=== PATIENT | female | born 1990 | race Caucasian/White ===

== ENCOUNTER 2018-09-23 05:02 | Inpatient (IN) | payer BC ==
[2018-09-23] VITALS (12 sets, daily range): BP systolic 103–118; BP diastolic 53–80; Ht 160 cm; Wt 67.1 kg
[~2018-09-23] VITALS: Ht 160 cm; Wt 67.1 kg
[~2018-09-23 05:02] MED LIST: ACET-1966 PO; ALBU8.5H IH; Benzocaine 60 ML TP; CALC-18 PO; CETI10CA8 PO; DOCU240C67 PO; IBUP800T37 PO; Lanolin TP; ONDA4TAB9 PO; PREN-127 PO; TUCKS TOP
[2018-09-23] MEDS ORDERED: OXYTOCIN 30 UNIT/D5LR 500 ML 500 ML IV PRN ×2 (05:04→07:01)
[2018-09-23] MEDS ORDERED: DLR(*) 1000 ML BAG 1,000 ML IV PRN ×2 (05:04→07:01)
[2018-09-23] MEDS ORDERED: cefOXitin/DEX(*) 2GM/50ML PREM 50 ML IVPB PRN (05:05)
[2018-09-23] MEDS ORDERED: FLUSH 10 ML SYR IVP PRN (05:05)
[2018-09-23] MEDS ORDERED: LIDOCAINE/SOD BICARB 8.4% SYR ID ONE (05:20)
[2018-09-23 05:51] LABS: PLATELET COUNT, AUTOMATED 212 K/uL (150-450)
[2018-09-23] MEDS: LR(*) 1000 ML BAG 1,000 ML IV PRN ×2 (05:57→06:08)
[2018-09-23] MEDS ORDERED: METOCLOPRAMIDE 10 MG/2 ML SDV IVP ONE (06:10)
[2018-09-23] MEDS ORDERED: FAMOTIDINE(*) 20MG/50ML PREMIX 50 ML IVPB ONE (06:10)
[2018-09-23] MEDS ORDERED: MORPHINE PF 5 MG/10 ML AMP ONE (06:30)
[2018-09-23] MEDS ORDERED: OXYTOCIN 10 UNIT/ML SDV ONE (06:30)
[2018-09-23] MEDS ORDERED: DEXAMETHASONE SOD 4 MG/ML VIAL ONE (06:31)
[2018-09-23] MEDS ORDERED: KETOROLAC 30 MG/ML VIAL ONE (06:31)
[2018-09-23] MEDS ORDERED: ONDANSETRON 4 MG/2 ML VIAL ONE (06:31)
--- NOTE | 2018-09-23 07:01 | History & Physical ---
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 She has seen an opthamalologist and his recommendation was to avoid pushing in labor for this and to have a . This was di scussed with Екатерина including pros/cons of as delivery method. She desires a . has been relatively uncomplicated otherwise. She was followed by u/s for growth at 30 weeks and was normal. She is GBS positive. Past Medical, Surgical, Family and Obstetric Histories reviewed. Please see ACOG chart. History Patient's Blood Type: O Positive Rubella Status: Immune Group B Strep Screen: Positive Obstetrical History: x 1 Allergies: Coded Allergies: Sulfa (Sulfonamide Antibiotics) (Verified Allergy, Unknown, 10/22/16) Med Rec Home Meds Reported Medications Acetaminophen (TYLENOL) 325 Mg Tablet, 325 MG PO PRN, TAB 08/28/18 Ondansetron 4 Mg Odt (ONDANSETRON 4 MG ODT) 4 Mg Tab.rapdis, 4 MG PO ONCE PRN for NAUSEA, TAB 08/28/18 Vits W-Ca,Fe,Fa(<1MG) ( VITAMINS) 1 Each Tablet, 1 EACH PO DAILY, TAB 10/28/16 Albuterol Sulfate 90 Mcg/Act (PROAIR HFA 90 MCG/ACT) 8.5 Gm Hfa.aer.ad, 2 PUFF IH Q4-6H, INHALER 10/28/16 Review of Systems All Systems Reviewed/Normal: Yes, Except as Noted Exam General Exam General Apperance: Alert/Awake/No Acute Distress Neuro: No Gross deficits Eyes: Normal Extraocular Movement & Vison Cardiovascular: Regular Rate and Rhythm Respiratory: No Respiratory Distress, Clear to Auscultation Abdomen: Soft, Non-Tender, Non-Distended, Gravid - Non-Tender Integumentary: Skin Intact without Lesions or Rash Psychological: Alert & Oriented X3, Appropriate Mood & Affect Fetus Heart Tone Variabilty: Moderate FHT Accelerations: 15X15 FHT Category: I Medical Decision Making Data Points Result Diagram: 09/23/18 0535 VTE Prophylasis: Adult Deep Vein Thrombosis/Pulmonary: No Pharmacological Contraindicati: Pt at Low Risk for VTE Mechanical Contraindications: Pt at Low Risk for VTE Assessment and Plan Problems: (1) Valsalva retinopathy (2) 39 weeks gestation of Assessment & Plan: repeat as planned. Reviewed risks and benefits of vs vaginal delivery. 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
[2018-09-23] MEDS ORDERED: ZOLPIDEM TARTRATE 5 MG TAB PO PRN (07:05)
[2018-09-23] MEDS ORDERED: LANOLIN OINT 7 GM TUBE TP PRN (07:05)
[2018-09-23] MEDS ORDERED: ONDANSETRON 4 MG/2 ML VIAL IV PRN (07:05)
[2018-09-23] MEDS ORDERED: ACETAMINOPHEN 325 MG TAB PO PRN (07:05)
[2018-09-23] MEDS ORDERED: PROMETHAZINE 25 MG/ML 1 ML AMP IVP PRN (07:05)
--- NOTE | 2018-09-23 08:37 | Post Operative Note ---
Operative Note - MANAGER FORMS Operative Day Date: Sep 23, 2018 Time: 08:28 Physicians Surgeon: Leodan Anesthesia: Spinal Diagnosis Pre-Op Diagnosis: 39 weeks Valsalva retinopathy Post-Op Diagnosis: same Procedure Findings: female, vtx, APGARS 7, 8 weight 2980 gms Delivery time 0734 Procedure(s): Primary LTCS Specimen Removed:(Maybe N/A): placenta Complications: none [id number] Fluids Fluids: 2000 ml Estimated Blood Loss: 500 ml Dictated Date OP Note Dictated: Sep 23, 2018 Time OP Note Dictated: 08:32 Copies to: ADILSON MONTELONGO MD ; ADILSON MONTELONGO MD Sep 23, 2018 08:37
[2018-09-23] MEDS: DOCUSATE CALCIUM 240 MG CAP PO SCH ×2 (09:00→20:37)
[2018-09-23] MEDS: FAMOTIDINE 20 MG TAB PO SCH ×2 (09:00→20:37)
--- NOTE | 2018-09-23 09:17 | OPERATIVE REPORT 1 ---
EVENT DATE: September 23, 2018 SURGEON: Doe Alcocer MD ANESTHESIOLOGIST: Jaylen Horton MD ANESTHESIA: Spinal PREOPERATIVE DIAGNOSES 1. 39-weeks intrauterine . 2. Valsalva retinopathy. POSTOPERATIVE DIAGNOSES 1. 39-weeks intrauterine . 2. Valsalva retinopathy. PROCEDURE PERFORMED Primary low transverse caesarean section via Pfannenstiel skin incision. ESTIMATED BLOOD LOSS 500 cc. FLUIDS 2000 cc IV crystalloids. URINE OUTPUT Not measured. FINDINGS Female infant, cephalic presentation, Apgars 7 and 8. Placenta manually removed intact. Delivery weight 2980 grams. Delivery time 0734. DESCRIPTION OF PROCEDURE The patient was brought to the operating room with working IV and spinal anesthetic was placed by Dr. Horton. She was then moved to the dorsal lithotomy position with a leftward tilt and prepped and draped in the usual sterile fashion. Using a knife, a Pfannenstiel skin incision was made and carried through to the underlying rectus fascia. This was niched in the midline and extended laterally using the Daniels scissors. The rectus fascia was dissected off underlying rectus muscles using sharp dissection. The rectus muscles were then in the midline. The peritoneum was entered sharpy. This was extended superiorly and inferiorly, taking care to avoid injury to the underlying bladder. The bladder blade was inserted and the vesicouterine peritoneum was tented and entered sharply with Metzenbaum scissors and extended laterally. A bladder flap was created digitally. This exposed the lower uterine segment of the uterus, which received a low transverse incision with a scalpel and carried through to the intraamniotic space. There was clear fluid upon amniotomy. This was extended laterally using blunt lateral traction. The hand was inserted. The infant's head was elevated to the incision and fundal pressure was applied. The infant's head delivered atraumatically. The mouth and nose were bulb suctioned. Further fundal pressure effected delivery of the anterior and posterior shoulder followed by the remainder of the without difficulty. The mouth and nose were again bulb suctioned. The was stimulated manually. Cord was clamped, cut and then passed to the resuscitation team. A cord sample was obtained. The placenta was delivered manually. The uterus was exteriorized and cleared of clots and debris. Tolbert clamps were placed for hemostasis while the uterine repair was performed with a #1 Monocryl in a running locking stitch. A second suture of the same type was used to imbricate the first layer, completing a two layer closure. This was hemostatic upon completion. Therefore, the pelvis was irrigated and swept clear of clots and debris. Uterus was returned to the abdomen and bilateral pelvic gutters were irrigated and swept clear of clots and debris. Parietal peritoneum was repaired using 3-0 Vicryl in a running nonlocking stitch. Rectus muscles were reapproximated in the midline of the same stitch. The rectus muscle bellies were irrigated and blotted dry. A light amount of cautery was applied for capillary hemostasis. The rectus fascia was repaired with an 0 Vicryl in a running nonlocking stitch. Subcuticular space was irrigated and swept clear of clots and debris. Cautery was used for capillary hemostasis while the subcuticular space was closed with 3-0 Vicryl in a running nonlocking stitch. The skin was repaired with a 4-0 Monocryl simple subdermal and covered with Dermabond skin adhesive. She tolerated the procedure very well. Sponge, lap, needle and instrument counts were all correct x3. She was taken to recovery in stable condition. SHEFALI
[2018-09-23] MEDS ORDERED: NALOXONE HCL 0.4 MG/ML VIAL IV PRN (09:55)
[2018-09-23] MEDS ORDERED: ONDANSETRON 4 MG/2 ML VIAL IVP PRN (09:55)
[2018-09-23] MEDS ORDERED: diphenhydrAMINE 25 MG CAP PO PRN (09:55)
[2018-09-23] MEDS: NALBUPHINE HCL 10 MG/ML AMP IVP PRN ×2 (10:23→15:09)
[2018-09-23] MEDS ORDERED: KETOROLAC 30 MG/ML VIAL IVP SCH (12:00)
[2018-09-23] MEDS: KETOROLAC 30 MG/ML VIAL IVP SCH ×2 (14:01→20:37)
[2018-09-24] MEDS: KETOROLAC 30 MG/ML VIAL IVP SCH (01:57)
[2018-09-24 04:17] VITALS: BP 116/81
[2018-09-24 06:41] LABS: PLATELET COUNT, AUTOMATED 185 K/uL (150-450)
[2018-09-24 07:20] VITALS: BP 109/76
[2018-09-24] MEDS: IBUPROFEN 800 MG TAB PO SCH ×3 (07:52→23:22)
[2018-09-24] MEDS: FAMOTIDINE 20 MG TAB PO SCH ×2 (08:40→20:59)
[2018-09-24] MEDS: DOCUSATE CALCIUM 240 MG CAP PO SCH ×2 (08:40→20:59)
[2018-09-24 11:30] VITALS: BP 111/66
[2018-09-24] MEDS: SIMETHICONE 80 MG CHEW CHEW PRN ×2 (14:24→20:59)
[2018-09-24 15:30] VITALS: BP 120/78
--- NOTE | 2018-09-24 15:36 | OB/GYN Progress Note ---
OB Subjective Progress Notes Subjective Doing well. Pain well controlled and only occasional nausea but not emesis. Ambulating now and voiding spontaneously. Wants to shower. GI: NEG Nausea : Voiding Well Pain: Mild OB Objective Physical Exam Vital Signs Date Time Temp Pulse Resp B/P (MAP) Pulse Ox O2 Delivery O2 Flow Rate FiO2 09/24/18 07:20 Room Air 09/24/18 07:20 98.4 65 16 109/76 (87) 94 Intake and Output 09/24/18 07:00 Intake Total 3000 ml Output Total 1250 ml Balance 1750 ml IV Total 3000 ml Output Urine Total 1250 ml General Appearance: Alert/Awake/No Acute Distress Neurological: No Gross deficits Eyes: Normal Extraocular Movement & Vison Cardiovascular: Normal Rhythm & Peripheral Pulses, Regular Rate and Rhythm Respiratory: No Respiratory Distress, Clear to Auscultation Abdomen: Soft, Non-Tender, Non-Distended, Fundus Firm, Non-Tender Incision: Clean, Dry, Intact, Dermabond Integumentary: Skin Intact without Lesions or Rash Psychological: Alert & Oriented X3, Appropriate Mood & Affect Result Diagram: 09/24/18 0622 Assessment and Plan P[employer] Plan: Routine Post-Op Care, Discharge Home Tomorrow Problems: (1) Valsalva retinopathy (2) 39 weeks gestation of (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 Continue pain medication as needed and monitor for nausea. Zofran for nausea if needed. ADILSON MONTELONGO MD Sep 24, 2018 15:36
[2018-09-24] MEDS ORDERED: PER PO (15:40)
[2018-09-24] MEDS ORDERED: IBUP800T37 PO (15:40)
[2018-09-24] MEDS ORDERED: ONDANSETRON 4 MG ODT TABDP SL PRN (15:55)
[2018-09-24 19:13] VITALS: BP 115/78
[2018-09-24 23:17] VITALS: BP 121/84
[2018-09-25 03:09] VITALS: BP 128/81
[2018-09-25] MEDS ORDERED: MAGNESIUM HYDROXIDE* 30ML UDCP PO PRN (03:15)
[2018-09-25] MEDS ORDERED: MEASLES,MUMP,RUBELLA VAC 0.5ML SUBQ ONE (07:05)
[2018-09-25] MEDS ORDERED: INFLUENZA VIRUS VAC 0.5ML SYR IM ONLY ONE (07:05)
[2018-09-25] MEDS ORDERED: DIPHTH/TETANUS/ACEL. PERTUSSIS IM ONLY ONE (07:05)
--- NOTE | 2018-09-25 07:35 | OB/GYN Progress Note ---
OB Subjective Progress Notes Subjective Doing well. Pain well controlled and ambulating. BM already and feels well. Voiding well. GI: NEG Nausea : Voiding Well Pain: Mild OB Objective Physical Exam Vital Signs Date Time Temp Pulse Resp B/P (MAP) Pulse Ox O2 Delivery O2 Flow Rate FiO2 09/25/18 03:09 98.1 67 16 128/81 (97) 96 Room Air Intake and Output 09/25/18 07:00 Intake Total 2080 ml Output Total 1100 ml Balance 980 ml Intake Oral 2080 ml Output Urine Total 1100 ml General Appearance: Alert/Awake/No Acute Distress Neurological: No Gross deficits Eyes: Normal Extraocular Movement & Vison Cardiovascular: Normal Rhythm & Peripheral Pulses, Regular Rate and Rhythm Respiratory: No Respiratory Distress, Clear to Auscultation Abdomen: Soft, Non-Tender, Non-Distended, Fundus Firm, Non-Tender Incision: Clean, Dry, Intact, Dermabond Integumentary: Skin Intact without Lesions or Rash Psychological: Alert & Oriented X3, Appropriate Mood & Affect Result Diagram: 09/24/18 0622 Assessment and Plan VP DATA Plan: Routine Post- Care, Routine Post-Op Care, Discharge Home Today Problems: (1) Valsalva retinopathy (2) 39 weeks gestation of (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 Return to office in 2 weeks for check. Call with concerns. Activity restrictions reviewed. ADILSON MONTELONGO MD Sep 25, 2018 07:35
--- NOTE | 2018-09-25 07:36 | OB/GYN Discharge Summary ---
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 (4) Other specified aftercare following surgery [place] Vital Signs Vital Signs Date Time Temp Pulse Resp B/P (MAP) Pulse Ox O2 Delivery O2 Flow Rate FiO2 09/24/18 07:20 Room Air 09/24/18 07:20 98.4 65 16 109/76 (87) 94 Weight (Pounds): 148 Result Diagram: 09/24/18 0622 Condition: Improved Discharge: Home, Self Senior Care Meds Active Scripts Oxycodone/Acetaminophen (OXYCODONE/ACETAMINOPHEN 5MG/325 MG) 5 Mg/325 Mg Tab, 1- 2 TAB PO Q4H PRN for PAIN, #20 TAB 0 Refills Prov:ADILSON ALCOCER MD 09/24/18 Reported Medications Acetaminophen (TYLENOL) 325 Mg Tablet, 325 MG PO PRN, TAB 08/28/18 Ondansetron 4 Mg Odt (ONDANSETRON 4 MG ODT) 4 Mg Tab.rapdis, 4 MG PO ONCE PRN for NAUSEA, TAB 08/28/18 Vits W-Ca,Fe,Fa(<1MG) ( VITAMINS) 1 Each Tablet, 1 EACH PO DAILY, TAB 10/28/16 Albuterol Sulfate 90 Mcg/Act (PROAIR HFA 90 MCG/ACT) 8.5 Gm Hfa.aer.ad, 2 PUFF IH Q4-6H, INHALER 10/28/16 Follow up Referrals: [place] [facility] - In Two Weeks @ [facility] with ADILSON ALCOCER MD Follow up with: Dr. Alcocer [phone] Follow up in: 6 wks PP or PO, 2 wks PO Discharge Diet: As Tolerates Discharge Activity: As Tolerates, No Heavy Lifting x 6 wks, No Heavy Lifting > 10lb, Pelvic Rest Copies to: ADILSON ALCOCER MD ; ADILSON ALCOCER MD Sep 24, 2018 15:41
[2018-09-25 07:40] VITALS: BP 123/89
[2018-09-25] MEDS: IBUPROFEN 800 MG TAB PO SCH (08:11)
[2018-09-25] MEDS: FAMOTIDINE 20 MG TAB PO SCH (08:11)
[2018-09-25] MEDS: DOCUSATE CALCIUM 240 MG CAP PO SCH (08:12)
== END 2018-09-25 11:55 | disposition home or self-care (01) | DRG 788 ==
LOC: OB 05:02
PROVIDERS: ADMIT Obstetrics & Gynecology; ATTEND Obstetrics & Gynecology
PROC: 10D00Z1 Extraction of Products of Conception, Low, Open Approach (ICD-10-PCS; principal; 2018-09-23 07:00)
DX: O99.824 Streptococcus B carrier state complicating childbirth (principal); O99.89 Other specified diseases and conditions complicating pregnancy, childbirth and the puerperium; H35.103 Retinopathy of prematurity, unspecified, bilateral; Z88.2 Allergy status to sulfonamides; Z3A.39 39 weeks gestation of pregnancy; Z37.0 Single live birth
CPT/HCPCS: 36415; 85014; 85018; 85025; 86703; 86850; 86900; 86901; J0694; J1100; J1885; J2270; J2300; J2405; J2590; J2765; J7120

== ENCOUNTER 2018-09-28 22:13 | Inpatient (IN) | payer BC ==
[2018-09-23 05:30] VITALS: Wt 65.5 kg
[~2018-09-28 22:13] MED LIST changes: +PER PO
[2018-09-28 22:56] LABS: PLATELET COUNT, AUTOMATED 253 K/uL (150-450)
--- NOTE | 2018-09-28 23:36 | RADIOLOGY IMAGING REPORT ---
FACILITY: [facility] PATIENT NAME: Danay Mckeon : 1990 MR: [id number] V: [id number] EXAM DATE: ORDERING PHYSICIAN: NAN BARBOSA TECHNOLOGIST: Location: [facility] Patient: Danay Mckeon : 1990 Visit/Account:[id number] Date of Sevice: 09/28/2018 PORTABLE CHEST: Indication: Dyspnea. Technique: A single frontal film was obtained. Comparison: None available. Skeletal and soft tissue structures: Intact and unremarkable. Heart and mediastinum: Within normal limits. Lung randall: Well-expanded and clear. No focal or diffuse opacities. Pleural spaces: Unremarkable. Impression: No acute process. Report Dictated By: Julian Reardon MD at 09/28/2018 11:31 PM Report E-Signed By: Julian Reardon MD at 09/28/2018 11:32 PM WSN:[id number]
[2018-09-29] MEDS ORDERED: IOPAMIDOL 76% 100 ML INFUS BTL 100 ML ONE (00:12)
[2018-09-29] MEDS ORDERED: NS(*) 0.9% 50 ML BAG 50 ML ONE (00:13)
--- NOTE | 2018-09-29 01:06 | RADIOLOGY IMAGING REPORT ---
FACILITY: [facility] [place] PATIENT NAME: Danay Mckeon : 1990 MR: [id number] V: [id number] EXAM DATE: [id number] ORDERING PHYSICIAN: NAN BARBOSA TECHNOLOGIST: [place] [facility] [place] Danay Mckeon : 1990 Visit/Account:[id number] Date of Sevice: 09/28/2018 CT angiogram of the chest: Indication: Dyspnea and chest pain. The patient is recently . Technique: Helical CT was performed through the chest following IV contrast enhancement with 75 cc of Isovue 370. Multiplanar reconstructions and MIP images are reviewed. One of the following dose optimization techniques was utilized in the performance of this exam: Autom ated exposure control; adjustment of the mA and/or kV according to the patient's size; or use of an i terative reconstruction technique. Specific details can be referenced in the facility's radiology CT exam operational policy. Comparison: None available. Pulmonary arteries: There is a small filling defect in a subsegmental pulmonary artery branch in the right lower lobe, compatible with acute pulmonary embolus. No other emboli are clearly identified in the peripheral or central pulmonary artery branches. Aorta and great vessels: There is uniform contrast enhancement. There are no signs of dissection or a neurysm. Heart and pericardial soft tissues: Within normal limits. Mediastinal soft tissues: Unremarkable. Lung randall: There is minimal atelectasis at the bases. No focal parenchymal consolidation or volume loss is identified. Pleural spaces: No evidence of effusion, focal pleural thickening, or pneumothorax. Skeletal structures: Well mineralized and intact. Upper abdomen: Unremarkable. IMPRESSION: Acute right lower lobe pulmonary embolus. A preliminary [place] [facility] [place]. Report Dictated By: Julian Reardon MD at 09/29/2018 12:42 AM Report E-Signed By: Julian Reardon MD at 09/29/2018 1:02 AM WSN:[id number]
--- NOTE | 2018-09-29 01:31 | ER Report ---
History and Physical Time Seen By MD: 22:30 Hx. of Stated Complaint: patient 5days post-, patient started having shortness of breath this evening, patient states feels a lot of pressure in chest, called ob nutritional yeast supervisor, they recommended she come in and get checked to rule out a PE. patients blood pressure running eye and has a lot of swelling in legs. HPI/ROS CHIEF COMPLAINT: dyspnea HISTORY OF PRESENT ILLNESS: 28 f 5 d from c section developed sudden onset sob, chest pressure 2 hrs prior to arrival. She has never had similar symptoms. Symptoms are moderate and chest pressure is non radiating. Pt notes bilat le edema x 1 day. She has not had stevenson, fever, chills, n/v. no prior VTE, no fam hx vte. Unremarkable . REVIEW OF SYSTEMS: Constitutional: No fever, no chills. Eyes: No discharge. ENT: No sore throat. Cardiovascular: Above Respiratory: Above Gastrointestinal: No abdominal pain, no vomiting. Genitourinary: no dysuria Musculoskeletal: No back pain. Skin: No rashes. Neurological: No headache. Remainder of the 14 system rev: Yes Allergies: Coded Allergies: Sulfa (Sulfonamide Antibiotics) (Verified Allergy, Unknown, 10/22/16) Home Meds Active Scripts Ibuprofen (IBUPROFEN) 800 Mg Tablet, 800 MG PO Q8H PRN for PAIN, #30 TAB 0 Refills Prov:ADILSON MONTELONGO MD 09/24/18 Oxycodone/Acetaminophen (OXYCODONE/ACETAMINOPHEN 5MG/325 MG) 5 Mg/325 Mg Tab, 1- 2 TAB PO Q4H PRN for PAIN, #20 TAB 0 Refills Prov:ADILSON MONTELONGO MD 09/24/18 Reported Medications Acetaminophen (TYLENOL) 325 Mg Tablet, 325 MG PO PRN, TAB 08/28/18 Ondansetron 4 Mg Odt (ONDANSETRON 4 MG ODT) 4 Mg Tab.rapdis, 4 MG PO ONCE PRN for NAUSEA, TAB 08/28/18 Vits W-Ca,Fe,Fa(<1MG) ( VITAMINS) 1 Each Tablet, 1 EACH PO DAILY, TAB 10/28/16 Albuterol Sulfate 90 Mcg/Act (PROAIR HFA 90 MCG/ACT) 8.5 Gm Hfa.aer.ad, 2 PUFF I H Q4-6H, INHALER 10/28/16 Reviewed Nurses Notes: Yes Old Medical Records Reviewed: Yes Hx Smoking: No Smoking Status: Never Smoker Exposure to Second Hand Smoke?: No Constitutional Vital Sign - Last 24 Hours 09/28/18 09/28/18 09/28/18 09/28/18 22:24 22:28 22:30 22:43 Temp 98.3 Pulse 57 46 51 Resp 12 17 45 B/P (MAP) 154/100 157/97 (117) Pulse Ox 95 93 96 O2 Delivery Room Air 09/28/18 09/28/18 09/28/18 09/28/18 22:58 23:00 23:28 23:30 Pulse 49 48 Resp 32 9 B/P (MAP) 151/96 (114) 139/93 (108) Pulse Ox 94 95 09/28/18 09/28/18 09/29/18 09/29/18 23:43 23:48 00:00 00:03 Pulse 43 49 52 Resp 21 29 27 B/P (MAP) 158/97 (117) 159/96 (117) Pulse Ox 96 94 96 09/29/18 09/29/18 09/29/18 09/29/18 00:08 00:22 00:30 00:38 Pulse ??? 50 Resp 23 15 B/P (MAP) 150/92 (111) 145/88 (107) Pulse Ox 94 94 09/29/18 09/29/18 09/29/18 00:53 01:00 01:08 Pulse 54 48 Resp 11 25 B/P (MAP) 151/94 (113) Pulse Ox 92 95 Physical Exam General Appearance: The patient is alert, has no immediate need for airway protection and no signs of toxicity. Eyes: Pupils equal and round no pallor or injection. ENT, Mouth: Mucous membranes are moist. Respiratory: There are no retractions, lungs are clear to auscultation. Cardiovascular: Regular rate and rhythm. No m/r/g Gastrointestinal: Abdomen is soft and non tender, no masses, bowel sounds normal. Neurological: alert, oriented, moves all ext Skin: Warm and dry, no rashes. Musculoskeletal: Extremities are nontender, nonswollen and have full range of motion. No edema DIFFERENTIAL DIAGNOSIS: After history and physical exam differential diagnosis was considered for PE, ACS, pre-eclampsia, dilated cardiomyopathy, or other emergent etiology. Medical Decision Making Data Points Result Diagram: 09/28/18223309/28/182233 Laboratory Hematology Test 09/28/18 22:34 09/28/18 23:14 Red Blood Count 3.65 M/uL (4.17-5.56) Mean Corpuscular Volume 87.1 fL (80.0-96.0) Mean Corpuscular Hemoglobin 29.9 pg (26.0-33.0) Mean Corpuscular Hemoglobin Concent 34.3 g/dL (32.0-36.0) Red Cell Distribution Width 15.3 % (11.5-14.5) Mean Platelet Volume 8.1 fL (7.2-11.1) Neutrophils (%) (Auto) 55.6 % (39.4-72.5) Lymphocytes (%) (Auto) 31.4 % (17.6-49.6) Monocytes (%) (Auto) 9.5 % (4.1-12.4) Eosinophils (%) (Auto) 2.7 % (0.4-6.7) Basophils (%) (Auto) 0.8 % (0.3-1.4) Nucleated RBC Relative Count (auto) 0.0 /100WBC Neutrophils # (Auto) 3.5 K/uL (2.0-7.4) Lymphocytes # (Auto) 2.0 K/uL (1.3-3.6) Monocytes # (Auto) 0.6 K/uL (0.3-1.0) Eosinophils # (Auto) 0.2 K/uL (0.0-0.5) Basophils # (Auto) 0.0 K/uL (0.0-0.1) Nucleated RBC Absolute Count (auto) 0.00 K/uL Sodium Level 138 mmol/L (137-145) Potassium Level 3.9 mmol/L (3.5-5.0) Chloride Level 112 mmol/L (98-107) Carbon Dioxide Level 21 mmol/L (22-31) Blood Urea Nitrogen 16 mg/dl (7-18) Creatinine 0.70 mg/dl (0.52-1.04) Glomerular Filtration Rate Calc > 60.0 Random Glucose 94 mg/dl (75-110) Uric Acid 4.7 mg/dl (2.5-7.5) Calcium Level 8.7 mg/dl (8.4-10.2) Total Bilirubin < 0.1 mg/dl (0.2-1.3) Aspartate Amino Transf (AST/SGOT) 22 U/L (0-35) Alanine Aminotransferase (ALT/SGPT) 25 U/L (0-56) Alkaline Phosphatase 123 U/L (0-126) B-Type Natriuretic Peptide 283 pg/ml (0-100) Total Protein 6.2 g/dl (6.3-8.2) Albumin 3.5 g/dl (3.5-5.0) Urine Color Straw Urine Clarity Clear Urine pH 5.0 pH (4.8-9.5) Urine Specific [place] 1.006 Urine Protein Negative mg/dL (NEGATIVE) Urine Glucose (UA) Negative mg/dL (NEGATIVE) Urine Ketones Negative mg/dL (NEGATIVE) Urine Blood Small (NEGATIVE) Urine Nitrite Negative (NEGATIVE) Urine Bilirubin Negative (NEGATIVE) Urine Urobilinogen Negative mg/dL (0.2-1.9) Urine Leukocyte Esterase Negative (NEGATIVE) Urine RBC <1 /HPF (0-2/HPF) Urine WBC 1 /HPF (0-5/HPF) Urine Squamous Epithelial Cells Few /LPF (</=FEW) Urine Bacteria Negative /HPF (NONE-FEW) Urine Mucus None /HPF (NONE-FEW) Chemistry Test 09/28/18 22:34 09/28/18 23:14 White Blood Count 6.3 k/uL (4.5-11.0) Red Blood Count 3.65 M/uL (4.17-5.56) Hemoglobin 10.9 g/dL (12.0-16.0) Hematocrit 31.8 % (34.0-47.0) Mean Corpuscular Volume 87.1 fL (80.0-96.0) Mean Corpuscular Hemoglobin 29.9 pg (26.0-33.0) Mean Corpuscular Hemoglobin Concent 34.3 g/dL (32.0-36.0) Red Cell Distribution Width 15.3 % (11.5-14.5) Platelet Count 253 K/uL (150-450) Mean Platelet Volume 8.1 fL (7.2-11.1) Neutrophils (%) (Auto) 55.6 % (39.4-72.5) Lymphocytes (%) (Auto) 31.4 % (17.6-49.6) Monocytes (%) (Auto) 9.5 % (4.1-12.4) Eosinophils (%) (Auto) 2.7 % (0.4-6.7) Basophils (%) (Auto) 0.8 % (0.3-1.4) Nucleated RBC Relative Count (auto) 0.0 /100WBC Neutrophils # (Auto) 3.5 K/uL (2.0-7.4) Lymphocytes # (Auto) 2.0 K/uL (1.3-3.6) Monocytes # (Auto) 0.6 K/uL (0.3-1.0) Eosinophils # (Auto) 0.2 K/uL (0.0-0.5) Basophils # (Auto) 0.0 K/uL (0.0-0.1) Nucleated RBC Absolute Count (auto) 0.00 K/uL Glomerular Filtration Rate Calc > 60.0 Uric Acid 4.7 mg/dl (2.5-7.5) Calcium Level 8.7 mg/dl (8.4-10.2) Total Bilirubin < 0.1 mg/dl (0.2-1.3) Aspartate Amino Transf (AST/SGOT) 22 U/L (0-35) Alanine Aminotransferase (ALT/SGPT) 25 U/L (0-56) Alkaline Phosphatase 123 U/L (0-126) B-Type Natriuretic Peptide 283 pg/ml (0-100) Total Protein 6.2 g/dl (6.3-8.2) Albumin 3.5 g/dl (3.5-5.0) Urine Color Straw Urine Clarity Clear Urine pH 5.0 pH (4.8-9.5) Urine Specific [place] 1.006 Urine Protein Negative mg/dL (NEGATIVE) Urine Glucose (UA) Negative mg/dL (NEGATIVE) Urine Ketones Negative mg/dL (NEGATIVE) Urine Blood Small (NEGATIVE) Urine Nitrite Negative (NEGATIVE) Urine Bilirubin Negative (NEGATIVE) Urine Urobilinogen Negative mg/dL (0.2-1.9) Urine Leukocyte Esterase Negative (NEGATIVE) Urine RBC <1 /HPF (0-2/HPF) Urine WBC 1 /HPF (0-5/HPF) Urine Squamous Epithelial Cells Few /LPF (</=FEW) Urine Bacteria Negative /HPF (NONE-FEW) Urine Mucus None /HPF (NONE-FEW) Urinalysis Test 09/28/18 23:14 Urine Color Straw Urine Clarity Clear Urine pH 5.0 pH (4.8-9.5) Urine Specific [place] 1.006 Urine Protein Negative mg/dL (NEGATIVE) Urine Glucose (UA) Negative mg/dL (NEGATIVE) Urine Ketones Negative mg/dL (NEGATIVE) Urine Blood Small (NEGATIVE) Urine Nitrite Negative (NEGATIVE) Urine Bilirubin Negative (NEGATIVE) Urine Urobilinogen Negative mg/dL (0.2-1.9) Urine Leukocyte Esterase Negative (NEGATIVE) Urine RBC <1 /HPF (0-2/HPF) Urine WBC 1 /HPF (0-5/HPF) Urine Squamous Epithelial Cells Few /LPF (</=FEW) Urine Bacteria Negative /HPF (NONE-FEW) Urine Mucus None /HPF (NONE-FEW) EKG/Imaging EKG Interpretation 12 lead EKG: Rhythm: sinus bradycardia Ch[place]is: normal QRS: normal ST segments: normal sinus bradycardia, oth nl adjunct nursing faculty Interpretation: Sinus Bradycardia ED Course/Re-evaluation ED Course 28-year-old female presents with chest pain and dyspnea and is noted to have hypertension, all concerning for the potential of preeclampsia, dilated cardiomyopathy, PE or other emergent etiology. Ultimately, subsegmental PE noted and will admit patient on Lovenox to OB service with hospitalist consulting. I have discussed with OB attending, hospitalist, and patient and all are in agreement. Patient's blood pressure remains under 160/110 so we'll continue to monitor and withhold treatment at this time as per OB recommendations. Patient is hemodynamically stable in the emergency department. Procedure Results: Ultrasound of the echo was obtained. The results of the study are normal. The study was read by me. . Decision to Disposition Date: Sep 29, 2018 Decision to Disposition Time: 01:30 Critical Care Time I spent a total of 45 minutes of critical care time in obtaining history, performing a physical exam, bedside monitoring of interventions, collecting and interpreting tests and discussion with consultants but not including time spent performing procedures. Depart Departure Latest Vital Signs Vital Signs Date Time Temp Pulse Resp B/P (MAP) Pulse Ox O2 Delivery O2 Flow Rate FiO2 09/29/18 01:08 48 25 95 09/29/18 01:00 151/94 (113) 3/18/19 22:24 98.3 Room Air Impression: Primary Impression: Pulmonary embolism Condition: Improved Disposition: Admitted from ER (OB) Problem Qualifiers Primary Impression: Pulmonary embolism Pulmonary embolism type: other Chronicity: acute Acute cor pulmonale presence: without acute cor pulmonale Qualified Codes: I26.99 - Other pulm onary embolism without acute cor pulmonale NAN BARBOSA MD Sep 29, 2018 01:31
[2018-09-29] MEDS ORDERED: ENOXAPARIN 100 MG/ML SYR SC SCH ×3 (01:35→12:15)
[2018-09-29] MEDS ORDERED: PROMETHAZINE 25 MG/ML 1 ML AMP IVP PRN (01:50)
[2018-09-29] MEDS ORDERED: ONDANSETRON 4 MG/2 ML VIAL IV PRN (01:50)
[2018-09-29] MEDS ORDERED: METOCLOPRAMIDE 10 MG/2 ML SDV IV PRN (01:50)
[2018-09-29] MEDS ORDERED: ENOXAPARIN 100 MG/ML SYR SC ONE (01:55)
[2018-09-29 01:56] LABS: INR 0.94
--- NOTE | 2018-09-29 02:06 | EKG ---
FACILITY: [facility] PATIENT NAME: JENNIFER FOREMAN : [id number] MR: [id number] V: [id number] EXAM DATE: ORDERING PHYSICIAN: NAN BARBOSA TECHNOLOGIST: NATHALIA Mazariegos Reason : CP Blood Pressure : / mmHG Vent. Rate : 045 BPM Atrial Rate : 045 BPM P-R Int : 138 ms QRS Dur : 084 ms QT Int : 438 ms P-R-T Axes : 034 033 034 degrees QTc Int : 378 ms Sinus bradycardia No acute appearing findings No previous ECGs available Confirmed by EMILEE TERRELL ([id number]) on 09/29/2018 3:24:33 AM Referred By: Confirmed By:EMILEE ETRRELL
--- NOTE | 2018-09-29 02:28 | History & Physical ---
History of Present Illness Age of Patient: 28 : 2 Para or TPAL: 2 Chief Complaint Dyspnea and Shortness of Breath History of Present Illness 28 yo s/p section approximately 6 days ago. She reported sudden onset of chest pressure and shortness of breath which was not resolving. She called the chairperson anesthesiology phone and asked for advice. Given the patient's recent history of , , and current symptoms. I advised her to proceed to the emergency department for evaluation. Workup in the emergency department revealed a small filling defect in a subsegmental pulmonary artery branch in the right lower lobe, compatible with acute pulmonary embolus. History Obstetrical History: s/p on 09-23-18 Past Medical History: Unremarkable Allergies: Coded Allergies: Sulfa (Sulfonamide Antibiotics) (Verified Allergy, Unknown, 10/22/16) Med Rec Home Meds Active Scripts Ibuprofen (IBUPROFEN) 800 Mg Tablet, 800 MG PO Q8H PRN for PAIN, #30 TAB 0 Refills Prov:ADILSON MONTELONGO MD 09/24/18 Oxycodone/Acetaminophen (OXYCODONE/ACETAMINOPHEN 5MG/325 MG) 5 Mg/325 Mg Tab, 1- 2 TAB PO Q4H PRN for PAIN, #20 TAB 0 Refills Prov:ADILSON MONTELONGO MD 09/24/18 Reported Medications Acetaminophen (TYLENOL) 325 Mg Tablet, 325 MG PO PRN, TAB 08/28/18 Ondansetron 4 Mg Odt (ONDANSETRON 4 MG ODT) 4 Mg Tab.rapdis, 4 MG PO ONCE PRN for NAUSEA, TAB 08/28/18 Vits W-Ca,Fe,Fa(<1MG) ( VITAMINS) 1 Each Tablet, 1 EACH PO EV Y, TAB 10/28/16 Albuterol Sulfate 90 Mcg/Act (PROAIR HFA 90 MCG/ACT) 8.5 Gm Hfa.aer.ad, 2 PUFF IH Q4-6H, INHALER 10/28/16 Review of Systems Respiratory: Shortness of Breath, Cough, Wheezing, Other Exam General Exam Vital Signs Vital Signs Date Time Temp Pulse Resp B/P (MAP) Pulse Ox O2 Delivery O2 Flow Rate FiO2 09/29/18 07:15 52 14 96 Room Air 09/29/18 04:37 98.5 131/83 (99) General Apperance: Alert/Awake/No Acute Distress Neuro: No Gross deficits Cardiovascular: Other (Asymptomatic bradycardia) Musculoskeletal: No Weakness/Pain Extremities: No Cyanosis,Clubbing or Edema Psychological: Alert & Oriented X3, Appropriate Mood & Affect Medical Decision Making Data Points Result Diagram: 09/28/18223309/28/182233 Imaging Ultrasound/Imaging Laboratory Tests Test 09/28/18 22:34 09/28/18 23:14 09/29/18 00:00 White Blood Count 6.3 k/uL Red Blood Count 3.65 M/uL Hemoglobin 10.9 g/dL Hematocrit 31.8 % Mean Corpuscular Volume 87.1 fL Mean Corpuscular Hemoglobin 29.9 pg Mean Corpuscular Hemoglobin Concent 34.3 g/dL Red Cell Distribution Width 15.3 % Platelet Count 253 K/uL Mean Platelet Volume 8.1 fL Neutrophils (%) (Auto) 55.6 % Lymphocytes (%) (Auto) 31.4 % Monocytes (%) (Auto) 9.5 % Eosinophils (%) (Auto) 2.7 % Basophils (%) (Auto) 0.8 % Nucleated RBC Relative Count (auto) 0.0 /100WBC Neutrophils # (Auto) 3.5 K/uL Lymphocytes # (Auto) 2.0 K/uL Monocytes # (Auto) 0.6 K/uL Eosinophils # (Auto) 0.2 K/uL Basophils # (Auto) 0.0 K/uL Nucleated RBC Absolute Count (auto) 0.00 K/uL Sodium Level 138 mmol/L Potassium Level 3.9 mmol/L Chloride Level 112 mmol/L Carbon Dioxide Level 21 mmol/L Blood Urea Nitrogen 16 mg/dl Creatinine 0.70 mg/dl Glomerular Filtration Rate Calc > 60.0 Random Glucose 94 mg/dl Uric Acid 4.7 mg/dl Calcium Level 8.7 mg/dl Total Bilirubin < 0.1 mg/dl Aspartate Amino Transf (AST/SGOT) 22 U/L Alanine Aminotransferase (ALT/SGPT) 25 U/L Alkaline Phosphatase 123 U/L B-Type Natriuretic Peptide 283 pg/ml Total Protein 6.2 g/dl Albumin 3.5 g/dl Urine Color Straw Urine Clarity Clear Urine pH 5.0 pH Urine Specific [place] 1.006 Urine Protein Negative mg/dL Urine Glucose (UA) Negative mg/dL Urine Ketones Negative mg/dL Urine Blood Small Urine Nitrite Negative Urine Bilirubin Negative Urine Urobilinogen Negative mg/dL Urine Leukocyte Esterase Negative Urine RBC <1 /HPF Urine WBC 1 /HPF Urine Squamous Epithelial Cells Few /LPF Urine Bacteria Negative /HPF Urine Mucus None /HPF Prothrombin Time 12.5 seconds Prothromb Time International Ratio 0.94 Activated Partial Thromboplast Time 37 seconds Current Medications Medications (Trade) Dose Ordered Sig/Domonique Route PRN Reason Start Time Stop Time Status Last Admin Dose Admin Iopamidol 100 ml @ As Directed STK-MED ONCE .ROUTE 09/29/18 00:12 09/29/18 00:13 DC Sodium Chloride 50 ml @ As Directed STK-MED ONCE .ROUTE 09/29/18 00:13 09/29/18 00:14 DC Enoxaparin Sodium (Lovenox(*) 100 Mg/ml Syr (Or Equiv)) 67 mg Q12H SC 09/29/18 01:35 10/29/18 01:34 VTE Prophylasis: Adult Deep Vein Thrombosis/Pulmonary: Yes Assessment and Plan Post Day: 6 Hospital Day: 1 NON DESTRUCTIVE EVALUATION SPECIALIST Assessment: Stable, Other (Candidate for medical management of PE) Condition Stable. Patient to be admitted for inpatient management of PE. Dr. Karan Fagan MD to see for recommendations of anticoagulation treatment. Consult Karan Fagan MD - Management of PE Copies to: ADILSON MONTELONGO MD ; EDE RAMSEY MD Sep 29, 2018 02:26
[2018-09-29 02:49] VITALS: BP 148/85
[2018-09-29] MEDS ORDERED: WARFARIN SOD 7.5 MG TAB PO ONE (03:00)
--- NOTE | 2018-09-29 03:08 | Hospitalist Consultation ---
History of Present Illness Requesting Physician Dr. Blas Reason for Consult Pulmonary embolism Chief Complaint Short of breath History of Present Illness 28yo female with PMHx significant for mild asthma and recent (09/23/18) following full term . She reports some mild ankle swelling following her . She denied any leg pain. She had acute onset of chest tightness and dyspnea shortly after going to bed last evening. She was evaluated in the ER and CT pulmonary angiogram showed right-sided pulmonary embolism. She has no history of PE/DVT. No family history of it as well. She does want to breastfeed. History Problems: (1) Asthma, mild Status: Chronic (2) induced hypertension, antepartum Status: Resolved (3) Valsalva retinopathy Home Meds Active Scripts Ibuprofen (IBUPROFEN) 800 Mg Tablet, 800 MG PO Q8H PRN for PAIN, #30 TAB 0 Refills Prov:ADILSON MONTELONGO MD 09/24/18 Oxycodone/Acetaminophen (OXYCODONE/ACETAMINOPHEN 5MG/325 MG) 5 Mg/325 Mg Tab, 1- 2 TAB PO Q4H PRN for PAIN, #20 TAB 0 Refills Prov:ADILSON MONTELONGO MD 09/24/18 Reported Medications Acetaminophen (TYLENOL) 325 Mg Tablet, 325 MG PO PRN, TAB 08/28/18 Ondansetron 4 Mg Odt (ONDANSETRON 4 MG ODT) 4 Mg Tab.rapdis, 4 MG PO ONCE PRN for NAUSEA, TAB 08/28/18 Vits W-Ca,Fe,Fa(<1MG) ( VITAMINS) 1 Each Tablet, 1 EACH PO DAILY, TAB 10/28/16 Albuterol Sulfate 90 Mcg/Act (PROAIR HFA 90 MCG/ACT) 8.5 Gm Hfa.aer.ad, 2 PUFF IH Q4-6H, INHALER 10/28/16 Allergies: Coded Allergies: Sulfa (Sulfonamide Antibiotics) (Verified Allergy, Unknown, 10/22/16) Other Social/Family Hx No family history of DVT/PE. Hx Smoking: No Smoking Status: Never Smoker Exposure to Second Hand Smoke?: No Review of Systems Respiratory: Shortness of Breath Genitourinary: Other (no vaginal bleeding) Exam Vital Signs Vital Signs Date Time Temp Pulse Resp B/P (MAP) Pulse Ox O2 Delivery O2 Flow Rate FiO2 09/29/18 02:49 51 20 148/85 (106) Room Air 09/29/18 02:05 94 09/28/18 22:24 98.3 General Appearance: Alert, Awake Cardiovascular: Other (Regular slightly bradycardic) Respiratory: Clear to Auscultation Extremities: Warm, Perfused, Edema (trace both ankles), Other (Negative Valentín's sign bilaterally) Psych: Alert & Oriented X3 Medical Decision Making Data Points Result Diagram: 09/28/18223309/28/182233 Item Value Date Time Albumin 3.5 g/dl 09/28/182233 Total Protein 6.2 g/dl L 09/28/182233 B-Type Natriuretic Peptide 283 pg/ml H 09/28/182233 Alkaline Phosphatase 123 U/L 09/28/182233 Alanine Aminotransferase (ALT/SGPT) 25 U/L 09/28/182233 Aspartate Amino Transf (AST/SGOT) 22 U/L 09/28/182233 Total Bilirubin < 0.1 mg/dl L 09/28/182233 Calcium Level 8.7 mg/dl 09/28/182233 Uric Acid 4.7 mg/dl 09/28/182233 Urine Mucus None /HPF 09/28/182313 Urine Bacteria Negative /HPF 09/28/182313 Urine Squamous Epithelial Cells Few /LPF 09/28/182313 Urine WBC 1 /HPF 09/28/182313 Urine RBC <1 /HPF 09/28/182313 Urine Leukocyte Esterase Negative 09/28/182313 Urine Urobilinogen Negative mg/dL 09/28/182313 Urine Bilirubin Negative 09/28/182313 Urine Nitrite Negative 09/28/182313 Urine Blood Small 09/28/182313 Urine Ketones Negative mg/dL 09/28/182313 Urine Glucose (UA) Negative mg/dL 09/28/182313 Urine Protein Negative mg/dL 09/28/182313 Urine Specific [place] 1.006 09/28/182313 Urine pH 5.0 pH 09/28/182313 Urine Clarity Clear 09/28/182313 Urine Color Straw 09/28/182313 Activated Partial Thromboplast Time 37 seconds H 09/29/18 0000 Prothromb Time International Ratio 0.94 09/29/18 Prothrombin Time 12.5 seconds 09/29/18 EKG / Imaging EKG Interpretation PATIENT NAME: JENNIFER FOREMAN : [id number] MR: [id number] V: [id number] EXAM DATE: ORDERING PHYSICIAN: NAN BARBOSA TECHNOLOGIST: NATHALIA Test Reason : CP Blood Pressure : / mmHG Vent. Rate : 045 BPM Atrial Rate : 045 BPM P-R Int : 138 ms QRS Dur : 084 ms QT Int : 438 ms P-R-T Axes : 034 033 034 degrees QTc Int : 378 ms Sinus bradycardia No acute appearing findings No previous ECGs available Confirmed by EMILEE TERRELL ([id number]) on 09/29/2018 3:24:33 AM Referred By: Confirmed By:EMILEE TERRELL Imaging PATIENT NAME: Jennifer Foreman : 1990 MR: [id number] V: [id number] EXAM DATE: [id number] ORDERING PHYSICIAN: NAN BARBOSA TECHNOLOGIST: Location: [facility] Patient: Jennifer Foreman : 1990 Visit/Account:[id number] Date of Sevice: 09/28/2018 CT angiogram of the chest: Indication: Dyspnea and chest pain. The patient is recently . Technique: Helical CT was performed through the chest following IV contrast enhancement with 75 cc of Isovue 370. Multiplanar reconstructions and MIP images are reviewed. One of the following dose optimization techniques was utilized in the performance of this exam: Automated exposure control; adjustment of the mA and /or kV according to the patient's size; or use of an iterative reconstruction technique. Specific details can be referenced in the facility's radiology CT exam operational policy. Comparison: None available. Pulmonary arteries: There is a small filling defect in a subsegmental pulmonary artery branch in the right lower lobe, compatible with acute pulmonary embolus. No other emboli are clearly identified in the peripheral or central pulmonary artery branches. Aorta and great vessels: There is uniform contrast enhancement. There are no signs of dissection or aneurysm. Heart and pericardial soft tissues: Within normal limits. Mediastinal soft tissues: Unremarkable. Lung randall: There is minimal atelectasis at the bases. No focal parenchymal consolidation or volume loss is identified. Pleural spaces: No evidence of effusion, focal pleural thickening, or pneumothorax. Skeletal structures: Well mineralized and intact. Upper abdomen: Unremarkable. IMPRESSION: Acute right lower lobe pulmonary embolus. A preliminary report was called to Dr. Barbosa at [facility] at 0055 hours. Report Dictated By: Julian Reardon MD at 09/29/2018 12:42 AM Report E-Signed By: Julian Reardon MD at 09/29/2018 1:02 AM [id number] Assessment and Plan Problems: (1) Pulmonary embolism Status: Acute Assessment & Plan: She appears to have had low clot burden PE. Her risk factors would be her state and recent surgery. She seems to be quite stable at this time and is not requiring oxygen supplementation. She has been started on subcutaneous Lovenox. I discussed options for anticoagulation therapy with the patient and her . As she wants to continue , either continued Lovenox injections or warfarin would be her options as the newer anticoagulants (Xarelto and Eliquis) can be excreted in breast milk. She did not want to continue the injections, which leaves her with warfarin. She was advised to not get while on warfarin as it can be very teratogenic in early . She will be started on overlapping Lovenox and warfarin. It will most likely take 3-5 days to get to a therapeutic protime/INR. If she remains stable, she could be discharged on Lovenox 1mg/kg SQ q12hrs (until therapeutic INR) and warfarin 5mg daily with close follow up as an outpatient. Dr. Katharina Packer PharmD does a warfarin clinic in the [facility] offices and could follow her protime/INR. She would need a minimum 6 months of anticoagulation therapy. (2) Mother currently breast-feeding Assessment & Plan: See above. Copies to: ADILSON MONTELONGO MD ; Venous Thromboembolism Antithrombotics Is Pt On Any Antithrombotics?: Yes Exam Sepsis Risk: No Definite Risk Problem Qualifiers (1) Pulmonary embolism: Pulmonary embolism type: other Chronicity: acute Acute cor pulmonale presence: without acute cor pulmonale Qualified Codes: I26.99 - Other pulmonary embolism without acute cor pulmonale EMILEE TERRELL MD Sep 29, 2018 03:08
[2018-09-29 04:37] VITALS: BP 131/83
[2018-09-29 11:23] VITALS: BP 143/90
[2018-09-29] MEDS ORDERED: ENOX100D5 SC (12:31)
[2018-09-29] MEDS ORDERED: WARF-1 PO (12:31)
--- NOTE | 2018-09-29 12:35 | Hospitalist Progress Note ---
Subjective Progress Notes Subjective She was admitted with pulmonary embolism. She has no complaints this morning. She had no acute events overnight. She denies chest pain or SOB. She is not requiring oxygen. Patient Complains of: Cardiovascular: No: Chest Pain Respiratory: No: Shortness of Breath Physical Exam Vital Signs Date Time Temp Pulse Resp B/P (MAP) Pulse Ox O2 Delivery O2 Flow Rate FiO2 09/29/18 07:15 52 14 96 Room Air 09/29/18 04:37 98.5 131/83 (99) General Appearance: Alert, Awake, No Acute Distress, Afebrile Neuro: No Gross deficits Cardiovascular: Regular Rate and Rhythm Respiratory: No Respiratory Distress, Clear to Auscultation GI: Soft and Non-Tender Extremities: Warm, Perfused; No Edema Psych: Alert & Oriented X3, Appropriate Mood & Affect Result Diagram: 09/28/18223309/28/182233 Monitor Interpretation: Sinus Bradycardia Assessment and Plan Problems: (1) Pulmonary embolism Status: Acute Assessment & Plan: She appears to have had low clot burden PE. Her risk factors would be her state and recent surgery. She seems to be quite stable at this time and is not requiring oxygen supplementation. She was started on subcutaneous Lovenox. I discussed options for anticoagulation therapy with the patient and her . As she wants to continue , either continued Lovenox injections or warfarin would be her options as the newer anticoagulants (Xarelto and Eliquis) can be excreted in breast milk. She did not want to continue the injections, which leaves her with warfarin. She was advised to not get while on warfarin as it can be very teratogenic in early . She will be started on overlapping Lovenox and warfarin. It will most likely take 3-5 days to get to a therapeutic protime/INR. She will be discharged on Lovenox 1mg/kg SQ q12hrs (until therapeutic INR) and warfarin 5mg daily with close follow up as an outpatient. She will have Dr. Nunez monitor INR. She would need a minimum 6 months of anticoagulation therapy. (2) Mother currently breast-feeding Assessment & Plan: See above. Exam Sepsis Risk: No Definite Risk Problem Qualifiers (1) Pulmonary embolism: Pulmonary embolism type: other Chronicity: acute Acute cor pulmonale presence: without acute cor pulmonale Qualified Codes: I26.99 - Other pulmonary embolism without acute cor pulmonale DANIELA AMAYAP Sep 29, 2018 12:35
[2018-09-29] MEDS ORDERED: WARFARIN SOD 5 MG TAB PO SCH (13:00)
--- NOTE | 2018-09-30 11:40 | OB/GYN Discharge Summary ---
Discharge Summary Reason for Hosp/Final Diag: (1) Pulmonary embolism Onset Date: ~ 09/29/2018 Status: Acute Hospital Course & Plan: 28 yo s/p section approximately 6 days ago. She reported sudden onset of chest pressure and shortness of breath which was not resolving. She called the habitat conservation planner phone and asked for advice. Given the patient's recent history of , , and current symptoms. I advised her to proceed to the emergency department for evaluation. Workup in the emergency department revealed a small filling defect in a subsegmental pulmonary artery branch in the right lower lobe, compatible with acute pulmonary embolus. She was started on therapeutic Lovenox in the ED prior to admission. She was evaluated by the Hospitalist team for recommendations regarding medication choices. Per patient, she opted to start on Warfarin. While in the hospital she was given Lovenox teaching. She was set up for follow up care in one of the local Coumadin clinics for INR evaluation until her INR is therapeutic. As she was in stable condition, she was discharged home. Lates Vital Signs Vital Signs Date Time Temp Pulse Resp B/P (MAP) Pulse Ox O2 Delivery O2 Flow Rate FiO2 09/29/18 11:23 97.8 52 16 143/90 (107) 97 Room Air Weight (Pounds): 144 Weight (Ounces): 6.0 Result Diagram: 09/28/18223309/28/182233 Condition: Improved Discharge: Home Consults Hospitalist Team Home Meds Active Scripts Warfarin Sodium (COUMADIN) 5 Mg Tablet, 5 MG PO QDAY@13, #30 TAB Prov:DANIELA AMAYAP 09/29/18 Enoxaparin Sodium (LOVENOX) 100 Mg/1 Ml Disp.syrin, 65 MG SC Q12H, #10 SYR Prov:DANIELA AMAYA [employer] 09/29/18 Oxycodone/Acetaminophen (OXYCODONE/ACETAMINOPHEN 5MG/325 MG) 5 Mg/325 Mg Tab, 1- 2 TAB PO Q4H PRN for PAIN, #20 TAB 0 Refills Prov:ADILSON MONTELONGO MD 09/24/18 Reported Medications Acetaminophen (TYLENOL) 325 Mg Tablet, 325 MG PO PRN, TAB 08/28/18 Ondansetron 4 Mg Odt (ONDANSETRON 4 MG ODT) 4 Mg Tab.rapdis, 4 MG PO ONCE PRN for NAUSEA, TAB 08/28/18 Vits W-Ca,Fe,Fa(<1MG) ( VITAMINS) 1 Each Tablet, 1 EACH PO DAILY, TAB 10/28/16 Albuterol Sulfate 90 Mcg/Act (PROAIR HFA 90 MCG/ACT) 8.5 Gm Hfa.aer.ad, 2 PUFF IH Q4-6H, INHALER 10/28/16 Discontinued Scripts Ibuprofen (IBUPROFEN) 800 Mg Tablet, 800 MG PO Q8H PRN for PAIN, #30 TAB 0 Refills Prov:ADILSON MONTELONGO MD 09/24/18 Follow up in: 1-2 days Discharge Diet: As Tolerates Discharge Activity: As Tolerates Special Instructions: Please follow-up with Provider and medications as has been instructed. Copies to: ADILSON MONTELONGO MD ; Warfarin Therapy Started: Yes Problem Qualifiers (1) Pulmonary embolism: Pulmonary embolism type: other Chronicity: acute Acute cor pulmonale presence: without acute cor pulmonale Qualified Codes: I26.99 - Other pulmonary embolism without acute cor pulmonale EDE RAMSEY MD Sep 30, 2018 11:40
== END 2018-09-29 13:15 | disposition home or self-care (01) | DRG 776 ==
LOC: ER 22:49 → OB 09-29 01:34
PROVIDERS: ADMIT Obstetrics & Gynecology; ATTEND Obstetrics & Gynecology
DX: O88.83 Other embolism in the puerperium (principal); O16.5 Unspecified maternal hypertension, complicating the puerperium; J45.909 Unspecified asthma, uncomplicated; H35.109 Retinopathy of prematurity, unspecified, unspecified eye; Z88.2 Allergy status to sulfonamides
CPT/HCPCS: 71045; 71275; 81001; 82040; 82247; 82310; 82374; 82435; 82565; 82947; 83880; 84075; 84132; 84155; 84295; 84450; 84460; 84520; 84550; 85025; 85610; 85730; 93005; 99291; J1650; J7050; Q9967

== ENCOUNTER → 2018-11-04 | Outpatient (CLI) | payer BC ==
[2018-09-23 05:30] VITALS: BMI 26.2
[~2018-11-04] MED LIST changes: +ENOX100D5 SC; +WARF-1 PO
== END ==
LOC: US 00:30
PROVIDERS: ATTEND Family Medicine
DX: I26.99 Other pulmonary embolism without acute cor pulmonale (principal)
CPT/HCPCS: 93306

== ENCOUNTER → 2019-01-07 | Outpatient (CLI) | payer BC ==
[2018-09-23 05:30] VITALS: BMI 26.2
[~2019-01-07] MED LIST changes: +IOPAMIDOL 76% 100 ML INFUS BTL 100 ML ONE; +NS(*) 0.9% 50 ML BAG 50 ML ONE
--- NOTE | 2019-01-07 10:45 | RADIOLOGY IMAGING REPORT ---
FACILITY: [facility] - [place] PATIENT NAME: Danay Mckeon : 1990 MR: [id number] V: [id number] EXAM DATE: ORDERING PHYSICIAN: FLAKITO MIN TECHNOLOGIST: Location: [facility] - [place] Patient: Danay Mckeon : 1990 Visit/Account:[id number] Date of Sevice: 01/07/2019 CT CTA CHEST W & W/O CON HISTORY: History of pulmonary embolus 3 months earlier. TECHNIQUE: CTA chest with intravenous contrast attention to pulmonary arteries. Sagittal, coronal a nd slab 3D MIP coronal reconstructed images were also created for further evaluation and interpretati on. One of the following dose optimization techniques was utilized in the performance of this exam: a utomated exposure control; adjustment of the mA and/or kV according to the patient's size; or use of an iterative reconstruction technique. Specific details can be referenced in the facility's radiolog y CT exam operational policy. CONTRAST: 75 mL Isovue-370 IV. COMPARISON: CT chest 09/29/2017 FINDINGS: Heart/vessels: There is no filling defect in either the right or left pulmonary arterial vascular tr ee. Lungs/pleura: The lungs are clear. There is no effusion. Mediastinum: Normal. Lymph nodes: There is no lymphadenopathy. Visualized upper abdomen: Visualized portions of the liver, spleen, adrenal glands, and pancreas are normal. Bones/soft tissues: Normal. IMPRESSION: Normal CTA chest. The previously seen right lower lobe pulmonary emboli have resolved. Report Dictated By: Bright Easley at 01/07/2019 10:35 AM Report E-Signed By: Bright Easley at 01/07/2019 10:39 AM WSN:[email or web address]
== END ==
LOC: CT 00:24
PROVIDERS: ATTEND Family Medicine
DX: I26.99 Other pulmonary embolism without acute cor pulmonale (principal)
CPT/HCPCS: 71275; J7050; Q9967

== ENCOUNTER → 2019-02-12 | Outpatient (CLI) | payer BC ==
[2018-09-23 05:30] VITALS: BMI 26.2
[~2019-02-12] MED LIST changes: -IOPAMIDOL 76% 100 ML INFUS BTL 100 ML ONE; -NS(*) 0.9% 50 ML BAG 50 ML ONE
--- NOTE | 2019-02-14 20:24 | RT HOLTER TEST ---
FACILITY: [facility] - [place] PATIENT NAME: JENNIFER FOREMAN : [id number] MR: [id number] V: [id number] EXAM DATE: ORDERING PHYSICIAN: FLAKITO MIN TECHNOLOGIST: DOROTHY Contreras-up date: 2019-02-12 08:19:00 Duration: 47:54:00 Test Indications: PALPITATIONS Medications: N/A [id number] QRS complexes * Ventricular ectopics which represent % of total QRS comp. 10 Supraventricular ectopics which represent <1 % of total QRS comp. * Paced QRS complexes which represent % of total QRS comp. VENTRICULAR ECTOPY * Isolated * Bigeminal Cycles * Couplets * Runs * Beats in Runs * Beats LONGEST at * BPM at :: -- * Beats FASTEST at * BPM at :: -- SUPRAVENTRICULAR ECTOPY 10 Isolated 0 Couplets 0 Runs 0 Beats in Runs * Beats LONGEST at * BPM at :: -- * Beats FASTEST at * BPM at :: -- HEART RATES 43 MIN at 01:50:20 2019-02-13 80 AVG 142 MAX at 11:03:35 2019-02-12 LONGEST RR 1.552 secs at 04:46:05 2019-02-13 S-T LEVELS Channel 1 -12.800 mm MIN at 08:19:00 2019-02-12 -12.800 mm MAX at 08:19:00 2019-02-12 Channel 2 -12.800 mm MIN at 08:19:00 2019-02-12 -12.800 mm MAX at 08:19:00 2019-02-12 Channel 3 -12.800 mm MIN at 08:19:00 2019-02-12 -12.800 mm MAX at 08:19:00 2019-02-12 Maximum heart rate was sinus tachycardia at 142 beats per minute (BPM). Minimum heart rate was sinus bradycardia at 43 BPM. The patient had episodes of sinus arrhythmia, sinus tachycardia, normal sinus rhythm and sinus bradycardia. There was no vent ricular ectopy. She did have 10 isolated PACs. No other arrythmias were noted. There were no diary entries. Confirmed by SHAHID RASHID ([id number]) on 02/14/2019 8:20:18 PM Referred By: Overread By: SHAHID RASHID
== END ==
LOC: RESP 03:33
PROVIDERS: ATTEND Family Medicine
DX: R00.2 Palpitations (principal)
CPT/HCPCS: 93225; 93226